=== PATIENT | male | born 1985 | race Caucasian/White ===

== ENCOUNTER 2017-01-15 00:15 | Emergency (ER) | payer OTHER ==
[2017-01-15 00:27] VITALS: BP 118/59
[2017-01-15] MEDS ORDERED: DEPO-MEDROL IM ONE (01:05)
--- NOTE | 2017-01-15 01:08 | PROVIDER DOCUMENTATION ---
HPI-General Adult - General Chief Complaint: Cold Symptoms Stated Complaint: SOB,DIZZY,STOMACH Time Seen by Provider: 01/15/17 01:07 Source: patient Allergies/Adverse Reactions: Patient Allergies Allergy/AdvReac Type Severity Reaction Status Date / Time No Known Allergies Allergy Verified 01/15/17 00:27 Home Medications: Home Medication List Medication Instructions Recorded Confirmed Last Taken Type Albuterol Sulfate Inhaler 2 puff INH Q6H PRN PRN 01/15/17 01/15/17 01/14/17 20: 30 History [Ventolin Hfa] Guaifenesin/Codeine [Robitussin-AC] 10 ml PO Q4H PRN PRN #8 oz 01/15/17 Unknown Rx Prednisone 10 mg PO BID #14 tablet 01/15/17 Unknown Rx - History of Present Illness -Gen Adult Nature of Presenting Problems: 31 Y/O M presents to ED with Cold Symptoms. Pt states that he was at home this evening when he felt SOB , stated did a breathing treatment around 8:30pm. Pt states that he felt Nauseous and dizzy. Pt c/o of head congestion, runny nose, dry cough, chest tightness, and SOB. Pt states that he has a hx of asthma. currently using nebulizer, and an albuterol inhaler. Location of Pain/Injury: reports: generalized Pain Radiation: reports: no radiation Quality of Pain: reports: none Severity: reports: mild, moderate Onset/Duration: reports: this evening Timing: reports: still present Context/Activities at Onset: reports: light activity Modifying Factors: improves with: nothing Associated Symptoms: reports: dizziness, EENT symptoms, fever/chills, sinus congestion/drainage, nausea, shortness of breath. denies: diarrhea, headaches Review of Systems - Adult - REVIEW OF SYSTEMS - ADULT Constitutional: reports: fever. denies: chills Eyes: reports: no symptoms reported Ears, Nose, Mouth & Throat: reports: sinus problem. denies: throat pain Cardiovascular: reports: no symptoms reported Respiratory: reports: cough, shortness of breath Gastrointestinal: reports: nausea. denies: abdominal pain, diarrhea, vomiting Genitourinary: reports: no symptoms reported Musculoskeletal: reports: no symptoms reported Integumentary: reports: no symptoms reported Neurological: reports: no symptoms reported Psychiatric: reports: no symptoms reported Endocrine: reports: no symptoms reported Hematologic/Lymphatic: reports: no symptoms reported Allergic/Immunologic: reports: no symptoms reported All Other Systems: Reviewed and Negative Past History - Adult - PAST MEDICAL HISTORY-ADULT Review of Records: reports: Old Records Reviewed, Nursing Assessment Review, Medications Reviewed, Social history reviewed & non-contributory. - SOCIAL HISTORY Smoking: quit greater than 1 year Alcohol Use Frequency: occasionally Living Situation: family Physical Exam-General - PHYSICAL EXAM-ADULT Initial Vital Signs Reviewed: Yes - CONSTITUTIONAL General Appearance: appears well, alert, no apparent distress - EYES Eyes: PERRL/EOMI, pink conjunctivae, fundi clear, no AV nicking - HEAD, EARS, NOSE, MOUTH & THROAT HENMT: normocephalic/atraumatic, moist mucous membranes, normal ENT inspection, TMs normal, pharynx normal - NECK Neck: non-tender, full range of motion, supple, normal inspection - RESPIRATORY Respiratory: chest non-tender, lungs clear, normal breath sounds - CARDIOVASCULAR Cardiovascular: normal peripheral pulses, regular rate, rhythm - GASTROINTESTINAL (ABDOMEN) Abdominal Exam: normal bowel sounds, non tender, soft - LYMPHATIC Lymphatic: no adenopathy - MUSCULOSKELETAL Back Exam: normal inspection, no CVA tenderness, no vertebral tenderness Extremity: normal range of motion, non-tender, normal gait, normal inspection - SKIN Integumentary: normal color, normal turgor, warm/dry - NEUROLOGIC Neurologic: press tender smoke signal II-XII nml as tested - PSYCHIATRIC Psych/Mental Status: normal mood/affect, normal thought content, normal thought process, oriented x 3 Progress - PLAN OF CARE/RESULTS Progress/Plan/Lab Results: Orders Category Date Time Status Methylprednisolone Acetate [Depo-Medrol] Med 01/15/17 01:05 Discontinued 40 mg IM NOW ONE Vital Signs - 24 hr 01/15/17 00:19 Temperature 97.7 F Pulse Rate 59 L Respiratory 18 Rate Blood Pressure 118/59 O2 Sat by Pulse 98 Oximetry Departure - Departure Time of Disposition Order: 01:07 DIAGNOSIS: Cold Asthma Qualifiers: Asthma severity: unspecified severity Asthma complication type: uncomplicated Qualified Code(s): J45.909 - Unspecified asthma, uncomplicated Disposition: HOME 01 Certified Medical Emergency: Emergent Condition: Stable Additional Instructions: ED Follow Up Instructions: You have been treated by a care provider in the Emergency Department. These instructions are being provided to you so you can have an understanding of how to care for yourself upon discharge. Upon discharge from the Emergency Department, you are responsible for making arrangements for follow-up care by a physician of your choice. Take all prescribed medications as directed. Return to the Emergency Department immediately for any new or worsening symptoms. You may call the Physician Referral phone number at [phone] to obtain a list of Physicians who are taking new patients. Prescriptions: Prednisone 10 mg PO BID #14 tablet Guaifenesin/Codeine [Robitussin-AC] 10 ml PO Q4H PRN PRN #8 oz PRN Reason: Cough Referrals: Duong James [Primary Care Provider] - Attestation - Scribe Verification/Attestation Scribe:: Ivana Hawk Acting as Scribe for:: Juan Luis Weems Scribe documention review:: This chart was documented by a scribe and accurately reflects the service the provider performed and the decisions made by the provider.
== END 2017-01-15 01:17 | disposition home or self-care (01) ==
LOC: P.ED 00:15
DX: J45.909 Unspecified asthma, uncomplicated (principal); J00 Acute nasopharyngitis [common cold]; R09.81 Nasal congestion; R09.89 Other specified symptoms and signs involving the circulatory and respiratory systems; R05 Cough; R07.89 Other chest pain; R06.02 Shortness of breath; R42 Dizziness and giddiness; R50.9 Fever, unspecified; Z87.891 Personal history of nicotine dependence
CPT/HCPCS: 96372; J1030